=== PATIENT | male | born 1945 | race Caucasian/White ===

== ENCOUNTER 2018-12-06 08:53 | Day surgery (SDC) | payer MEDICARE ==
[2018-12-06] MEDS ORDERED: PROPOFOL 10 MG/ML VIAL IV ONE (08:54)
[2018-12-06] MEDS ORDERED: LIDOCAINE 2% MDV (20MG/ML) 20ML VIAL IV ONE (08:54)
--- NOTE | 2018-12-08 09:31 | Operative Note ---
DATE OF SURGERY: 12/06/2018 SURGEON: Jayce Ash D.O. REFERRING PHYSICIAN: Sen Hayes D.O. OPERATION: COLONOSCOPY TO THE CECUM WITH MULTIPLE BIOPSIES. INDICATION: History of ulcerative colitis. The patient's last examination was 2014. He was advised to follow up sooner, but consented to this examination. He did complain of occasional loose consistency stools, but generally states his stools are formed. He denies any bleeding at this time. He is taking Delzicol for treatment of his ulcerative colitis. ANESTHESIA: Intravenous sedation was administered by the Department of Anesthesiology and included Diprivan titrated to effect. PROCEDURE: Following informed consent from this alert individual, including a discussion of the risks and benefits of the procedure and opportunity for the patient to ask questions, the patient was in the left lateral decubitus position. Digital rectal examination was performed. No abnormalities were noted. Following this, the Olympus PCF 180 video colonoscope was inserted in the rectum without resistance. The rectal mucosa had a normal appearance with normal folds and distensibility. The colonoscope was advanced up through the colon to the level of the cecum without much difficulty. The cecum was defined by noting the cecal pouch and the light transilluminating through the right lower quadrant toward the groin. The colon preparation overall was good. There was some retained liquid and some small amount of semi- solid stool noted, which was washed and suctioned through the colonoscope. At the level of the cecum, there was some mucosal inflammation noted with marked friability. Multiple biopsies from the cecum were obtained. There was some deformity noted with scar tissue appreciated. The terminal ileum could not be cannulated, slowly withdrawn through the colon and revealed multiple ulcerations measuring between 5 and 12 mm in size throughout portions of the ascending colon and transverse colon. Multiple biopsies were taken with focal edema and erythema, with friability as well. The descending colon and sigmoid colon seemed to be endoscopically normal and random biopsies were taken. Retroflexion in the rectum was endoscopically unremarkable. The rectum itself appeared to be spared. The endoscope was then withdrawn. The patient tolerated the procedure well and was returned to the recovery area in stable condition. IMPRESSION: 1. Colitis with ulcerations noted throughout the cecum, ascending colon, and transverse colon as described above. Multiple biopsies taken. 2. Deformity noted in the cecum, biopsies taken. RECOMMENDATIONS: I will ask the patient to follow up in the GI Clinic with me to discuss pathology results and his clinical progress and also treatment options that will be available to him. In the recent past, he has been unwilling to try any steroid therapy for the acute inflammatory changes noted. Follow up will also be with Dr. Hayes. As always, thank you for allowing me to participate in the care of your patient. CC: Dr. Sen HUBER
== END 2018-12-06 11:26 | disposition home or self-care (01) ==
LOC: HOP 08:53
PROVIDERS: ATTEND Internal Medicine Gastroenterology
DX: K51.90 Ulcerative colitis, unspecified, without complications (principal); K63.89 Other specified diseases of intestine; E11.9 Type 2 diabetes mellitus without complications; K21.9 Gastro-esophageal reflux disease without esophagitis; E78.00 Pure hypercholesterolemia, unspecified; M33.20 Polymyositis, organ involvement unspecified